=== PATIENT | female | born 1960 | race Asian ===

== ENCOUNTER 2017-11-01 16:58 | Emergency (ER) | payer MEDICAID ==
[~2017-11-01] VITALS: Ht 154.9 cm; Wt 68.2 kg
[~2017-11-01 16:58] MED LIST: CYCL1DRO EACHEYE; FAMO-128 PO; LORA0.5T PO; LORA10CA PO; NEO/5DRO3 EACHEYE; OXYB5TAB11 PO; PANT-47 PO; QUET-1 PO; SERT100T PO; TRAM50TA2 PO
[2017-11-01] MEDS ORDERED: TETanus/Pertussis (Acell)/Diphther VAC/PF (Tdap-Adult) 0.5ml syringe IM ONE (17:05)
[2017-11-01] MEDS ORDERED: BUPIVAcaine 0.5% inj/PF 30 ml vial IJ ONE (17:05)
[2017-11-01 17:06] VITALS: BP 147/101
== END 2017-11-01 17:34 | disposition home or self-care (01) ==
LOC: ER 16:59
DX: S60.351A Superficial foreign body of right thumb, initial encounter (principal); G89.29 Other chronic pain; Z90.710 Acquired absence of both cervix and uterus; Z79.899 Other long term (current) drug therapy; W22.8XXA Striking against or struck by other objects, initial encounter; Y93.89 Activity, other specified; Y92.89 Other specified places as the place of occurrence of the external cause; Y99.9 Unspecified external cause status
CPT/HCPCS: 64450; 99284; J3490; 99281

== ENCOUNTER 2018-02-01 18:59 | Emergency (ER) | payer MEDICAID ==
[~2018-02-01] VITALS: Ht 154.9 cm; Wt 71.3 kg
[2018-02-01 19:37] LABS: BASOPHILS % (AUTO) 0 % (0-1); EOSINOPHILS # (AUTO) 0.2 X10'3 (0-0.9); HEMATOCRIT 46.4 % (35.0-45.0); HEMOGLOBIN 16.2 g/dl (12.0-16.0); LYMPHOCYTES # (AUTO) 0.7 X10'3 (1.1-4.8); MEAN CORPUSCULAR HEMOGLOBIN 30.2 PG (27.0-31.0); MEAN CORPUSCULAR HGB CONC 34.9 % (33.0-36.5); MEAN CORPUSCULAR VOLUME 86.4 FL (78-98); MEAN PLATELET VOLUME 6.7 FL (7.4-10.4); MONOCYTES # (AUTO) 0.2 X10'3 (0-0.9); MONOCYTES % (AUTO) 2.7 % (2-12); NEUTROPHILS % (AUTO) 87.3 % (42-75); PLATELET COUNT 189 X10'3 (140-440); RED BLOOD COUNT 5.37 X10'6 (4.20-5.60); RED CELL DISTRIBUTION WIDTH 12.5 % (11.5-14.5); WHITE BLOOD COUNT 9.1 X10'3 (4.5-11.0)
[2018-02-01 19:52] LABS: ALANINE AMINOTRANSFERASE 49 U/L (12-78); ALBUMIN 3.8 G/DL (3.4-5.0); ALBUMIN/GLOBULIN RATIO 0.9 (1.1-1.5); ALKALINE PHOSPHATASE 95 IU/L (46-116); ANION GAP 8 (8-16); ASPARTATE AMINO TRANSFERASE 28 U/L (10-37); BILIRUBIN,TOTAL 0.6 MG/DL (0.1-1.0); BLOOD UREA NITROGEN 15 MG/DL (7-18); BUN/CREATININE RATIO 19.7 (6.6-38.0); CALCIUM 8.8 MG/DL (8.5-10.1); CHLORIDE 105 MMOL/L (99-107); CREATININE 0.76 MG/DL (0.40-0.90); GLUCOSE 120 MG/DL (70-104); LIPASE 123 U/L (73-393); POTASSIUM 3.8 MMOL/L (3.5-5.1); SODIUM 141 MMOL/L (135-145); TOTAL CARBON DIOXIDE 27.7 MMOL/L (24-32); TOTAL PROTEIN 8.1 G/DL (6.4-8.2); eGFR 79 ML/MIN
[2018-02-01 20:04] LABS: CLARITY,URINE CLEAR (Clear); COLOR,URINE YELLOW (Yellow); GLUCOSE, URINE NEGATIVE (Neg); KETONES,URINE NEGATIVE (Neg); LEUKOCYTE ESTERASE ,URINE NEGATIVE (Neg); NITRITES, URINE NEGATIVE (Neg); OCCULT BLOOD,URINE SMALL (Neg); PH,URINE 5.5 (4.8-8.0); PROTEIN,URINE NEGATIVE (Neg); UROBILINOGEN,URINE 0.2 E.U/dL (0.2-1.0)
[2018-02-01 20:09] LABS: BACTERIA,URINE NONE SEEN /HPF (Neg); RBC,URINE 0-2 /HPF (0-2); UA COLLECTION TYPE CLN CATCH MIDSTREAM; WBC,URINE NONE SEEN /HPF (0-4)
[2018-02-01 20:10] LABS: SQUAMOUS EPITHELIAL CELL,UR FEW /LPF (FEW)
[2018-02-01] MEDS ORDERED: ketorolac tromethamine 15mg/ml inj. IV ONE (20:30)
[2018-02-01] MEDS ORDERED: normal saline 1000ML IV soln IVB ONE (20:30)
[2018-02-01] MEDS ORDERED: ONDA4TAB9 SL (21:36)
[2018-02-01 21:57] VITALS: BP 124/72
== END 2018-02-01 21:58 | disposition home or self-care (01) ==
LOC: ER 18:59
DX: R10.31 Right lower quadrant pain (principal); R19.7 Diarrhea, unspecified; R11.2 Nausea with vomiting, unspecified; R31.9 Hematuria, unspecified; G89.29 Other chronic pain; Z90.710 Acquired absence of both cervix and uterus; Z56.0 Unemployment, unspecified; Z79.899 Other long term (current) drug therapy
CPT/HCPCS: 36415; 74176; 80053; 81001; 83690; 85025; 85610; 96361; 96374; 99285; J1885; J7030

== ENCOUNTER 2024-01-06 09:14 | Emergency (ER) | payer MEDICAID ==
[~2024-01-06] VITALS: Ht 154.9 cm; Wt 71.4 kg
[~2024-01-06 09:14] MED LIST changes: -OXYB5TAB11 PO; +OXYB5TAB21 PO
[2024-01-06 10:04] LABS: BILIRUBIN,URINE NEGATIVE (Neg); CLARITY,URINE CLEAR (Clear); COLOR,URINE YELLOW (Yellow); GLUCOSE, URINE NEGATIVE (Neg); KETONES,URINE NEGATIVE (Neg); LEUKOCYTE ESTERASE ,URINE NEGATIVE (Neg); NITRITES, URINE NEGATIVE (Neg); OCCULT BLOOD,URINE TRACE-INTACT (Neg); PROTEIN,URINE NEGATIVE (Neg); UROBILINOGEN,URINE 0.2 E.U/dL (0.2-1.0)
[2024-01-06 10:15] LABS: UA COLLECTION TYPE CLN CATCH MIDSTREAM
[2024-01-06 10:16] LABS: BACTERIA,URINE NONE SEEN /HPF (Neg); MUCUS STRANDS NONE SEEN /LPF (Neg); RBC,URINE NONE SEEN /HPF (0-2); SQUAMOUS EPITHELIAL CELL,UR FEW /LPF (FEW); WBC,URINE NONE SEEN /HPF (0-4)
[2024-01-06 10:24] LABS: BASOPHILS % (AUTO) 0.4 % (0-1); EOSINOPHILS # (AUTO) 0.1 X10'3 (0-0.9); EOSINOPHILS % (AUTO) 1.7 % (0-6); HEMATOCRIT 41.1 % (35.0-45.0); HEMOGLOBIN 13.8 g/dl (12.0-16.0); LYMPHOCYTES # (AUTO) 1.1 X10'3 (1.1-4.8); LYMPHOCYTES % (AUTO) 34.3 % (21-51); MEAN CORPUSCULAR HEMOGLOBIN 30.5 PG (27.0-31.0); MEAN CORPUSCULAR HGB CONC 33.5 g/dL (33.0-36.5); MEAN PLATELET VOLUME 7.1 FL (7.4-10.4); MONOCYTES # (AUTO) 0.2 X10'3 (0-0.9); MONOCYTES % (AUTO) 5.8 % (2-12); NEUTROPHILS # (AUTO) 1.9 X10'3 (1.8-7.7); NEUTROPHILS % (AUTO) 57.8 % (42-75); PLATELET COUNT 183 X10'3 (140-440); RED BLOOD COUNT 4.52 X10'6 (4.20-5.60); RED CELL DISTRIBUTION WIDTH 13.5 % (11.5-14.5); WHITE BLOOD COUNT 3.2 X10'3 (4.5-11.0)
[2024-01-06] MEDS: ondansetron/PF 4mg/2ml inj IV ONE (10:35)
[2024-01-06] MEDS: normal saline 1000ML IV soln IVB ONE (10:36)
[2024-01-06] MEDS: morphine 4 MG/ML inj SYRINge IV ONE (10:36)
[2024-01-06 10:43] LABS: ALANINE AMINOTRANSFERASE 39 U/L (12-78); ALBUMIN 3.5 G/DL (3.4-5.0); ALBUMIN/GLOBULIN RATIO 0.9 (1.1-1.5); ALKALINE PHOSPHATASE 84 IU/L (46-116); ANION GAP 9 (8-16); ASPARTATE AMINO TRANSFERASE 22 U/L (10-37); BILIRUBIN,TOTAL 0.5 MG/DL (0.1-1.0); BLOOD UREA NITROGEN 10 MG/DL (7-18); CALCIUM 8.4 MG/DL (8.5-10.1); CHLORIDE 108 MMOL/L (99-107); CREATININE 0.83 MG/DL (0.40-0.90); GLUCOSE 180 MG/DL (70-104); POTASSIUM 3.8 MMOL/L (3.5-5.1); SODIUM 145 MMOL/L (135-145); TOTAL CARBON DIOXIDE 27.8 MMOL/L (24-32); TOTAL PROTEIN 7.2 G/DL (6.4-8.2); eCRCL 54 ML/MIN; eGFR 70 ML/MIN
[2024-01-06 10:46] LABS: BILIRUBIN,DIRECT 0.1 MG/DL (0-0.3); LIPASE 28 U/L (16-77)
[2024-01-06 12:30] LABS: C-REACTIVE PROTEIN 0.13 MG/DL (0.0-0.5)
[2024-01-06 13:40] VITALS: BP 137/46; PULSE 65; RESP 14; TEMP 97.9; O2SAT 100
== END 2024-01-06 13:43 | disposition home or self-care (01) ==
LOC: ER 09:15
DX: K80.20 Calculus of gallbladder without cholecystitis without obstruction (principal); Z56.0 Unemployment, unspecified; Z90.710 Acquired absence of both cervix and uterus; Z79.899 Other long term (current) drug therapy; Z79.2 Long term (current) use of antibiotics
CPT/HCPCS: 36415; 76700; 80048; 80076; 81001; 83605; 83690; 84145; 85025; 86140; 96374; 96375; 99285; J2270; J2405; J7030

== ENCOUNTER 2024-02-12 06:10 | Day surgery (SDC) | payer MEDICAID ==
[2024-02-10 11:37] LABS: BILIRUBIN,URINE NEGATIVE (Neg); CLARITY,URINE CLEAR (Clear); COLOR,URINE STRAW (Yellow); GLUCOSE, URINE NEGATIVE (Neg); KETONES,URINE NEGATIVE (Neg); LEUKOCYTE ESTERASE ,URINE NEGATIVE (Neg); NITRITES, URINE NEGATIVE (Neg); OCCULT BLOOD,URINE NEGATIVE (Neg); PROTEIN,URINE NEGATIVE (Neg); UROBILINOGEN,URINE 0.2 E.U/dL (0.2-1.0)
[2024-02-10 11:42] LABS: UA COLLECTION TYPE CLN CATCH MIDSTREAM
[2024-02-10 11:44] LABS: BASOPHILS % (AUTO) 0.6 % (0-1); EOSINOPHILS # (AUTO) 0.1 X10'3 (0-0.9); EOSINOPHILS % (AUTO) 1.3 % (0-6); LYMPHOCYTES # (AUTO) 1.7 X10'3 (1.1-4.8); LYMPHOCYTES % (AUTO) 37.1 % (21-51); MEAN CORPUSCULAR HEMOGLOBIN 30.5 PG (27.0-31.0); MEAN CORPUSCULAR HGB CONC 33.5 g/dL (33.0-36.5); MEAN CORPUSCULAR VOLUME 91.2 FL (78-98); MONOCYTES # (AUTO) 0.3 X10'3 (0-0.9); MONOCYTES % (AUTO) 6.6 % (2-12); NEUTROPHILS # (AUTO) 2.4 X10'3 (1.8-7.7); NEUTROPHILS % (AUTO) 54.4 % (42-75); PRE OP HEMATOCRIT 42.3 % (35.0-45.0); PRE OP HEMOGLOBIN 14.2 g/dL (12.0-16.0); PRE OP PLATELET COUNT 162 X10'3 (140-440); PRE OP WHITE BLOOD COUNT 4.5 10'3 (4.8-10.8); RED BLOOD COUNT 4.63 X10'6 (4.20-5.60); RED CELL DISTRIBUTION WIDTH 13.1 % (11.5-14.5)
[2024-02-10 11:53] LABS: PRE OP PROTIME 10.8 SECONDS (9.0-12.0)
[2024-02-10 11:57] LABS: ALBUMIN 3.5 G/DL (3.4-5.0); ALBUMIN/GLOBULIN RATIO 0.8 (1.1-1.5); ALKALINE PHOSPHATASE 92 IU/L (46-116); BLOOD UREA NITROGEN 15 MG/DL (7-18); CALCIUM 8.8 MG/DL (8.5-10.1); CHLORIDE 107 MMOL/L (99-107); CREATININE 0.88 MG/DL (0.40-0.90); PRE OP ALT 37 U/L (30-65); PRE OP ANION GAP 4 (8-16); PRE OP AST 24 U/L (10-37); PRE OP BILIRUB, TOTAL 0.5 MG/DL (0.0-1.0); PRE OP GLUCOSE 105 MG/DL (70-104); PRE OP SODIUM 142 MMOL/L (135-145); TOTAL CARBON DIOXIDE 30.8 MMOL/L (24-32); TOTAL PROTEIN 7.7 G/DL (6.4-8.2); eGFR 65 ML/MIN
[~2024-02-12] VITALS: Ht 154.9 cm; Wt 71.0 kg
[2024-02-12] VITALS (14 sets, daily range): BP systolic 88–138; BP diastolic 47–89; PULSE 78–87; RESP 12–27; TEMP 98; O2SAT 90–100
[2024-02-12] MEDS: ceFOXitin 2GM-NS 100mL ADDvant 100 ML IV ONE (05:30)
[~2024-02-12 06:10] MED LIST changes: +ATOR10TA70 PO; +BECL10.6 PO; -CYCL1DRO EACHEYE; +CYCL5TAB PO; -FAMO-128 PO; +FAMO40TA7 PO; +GABA300C PO; -LORA0.5T PO; +LOSA100T58 PO; +MELO-102 PO; +METF-1203 PO; +MIRT-88 PO; -NEO/5DRO3 EACHEYE; -PANT-47 PO; +SIME80TA16 PO; -TRAM50TA2 PO
[2024-02-12] MEDS ORDERED: BUPIVAcaine/PF 2.5mg/ml (0.25%) 10ml vial ONE (06:36)
[2024-02-12] MEDS: famotidine 20mg tablet PO ONE (07:22)
[2024-02-12] MEDS: ringers solution, lacted 1,000 ML IV SCH ×2 (07:23→10:38)
[2024-02-12] MEDS: INDOCYANINE GREEN 25 MG/10 ML VIAL IV ONE (07:23)
[2024-02-12] MEDS ORDERED: midazolam 1 mg/ML 2ml injection ONE (08:08)
[2024-02-12] MEDS ORDERED: fentaNYL/PF 50MCG/1 ML 2ML syringe ONE ×2 (08:08→09:47)
[2024-02-12] MEDS ORDERED: propofol inj 20 ML IV ONE (08:09)
[2024-02-12] MEDS ORDERED: acetaminophen 1,000mg/100ml IV 100 ML IV ONE (08:09)
[2024-02-12] MEDS ORDERED: ondansetron/PF 4mg/2ml inj ONE (08:10)
[2024-02-12] MEDS ORDERED: neostigmine methylsulfate 1 MG/ML 10ml vial ONE (08:10)
[2024-02-12] MEDS ORDERED: rocuronium 10mg/ml inj IV ONE (08:10)
[2024-02-12] MEDS ORDERED: glycopyrrolate 0.2mg/ml inj ONE (08:10)
[2024-02-12] MEDS ORDERED: LIDOcaine 2% (20mg/ml) 5ml vial ONE (08:10)
[2024-02-12] MEDS ORDERED: dexamethasone sod phosphate 4mg/ml inj. ONE (08:10)
[2024-02-12] MEDS: albuterol 2.5 MG/3 ML nebule NEB STA (08:11)
[2024-02-12] MEDS ORDERED: enalaprilat dihydrate 2.5mg/2ml vial IV PRN (08:15)
[2024-02-12] MEDS ORDERED: fentaNYL/PF 50MCG/1 ML 2ML syringe IV PRN ×2 (08:15)
[2024-02-12] MEDS ORDERED: ondansetron/PF 4mg/2ml inj IV PRN (08:15)
[2024-02-12] MEDS ORDERED: morphine 2 MG/ML inj. syringe IV PRN (08:15)
[2024-02-12] MEDS ORDERED: hydrALAZINE 20mg/ml inj. IV PRN (08:15)
[2024-02-12] MEDS ORDERED: morphine 4 MG/ML inj SYRINge IV PRN (08:15)
[2024-02-12] MEDS ORDERED: sevoflurane 250ml liquid IH ONE (08:23)
[2024-02-12] MEDS ORDERED: labetalol 20mg/4ml (5mg/ml) syringe IV ONE (08:45)
[2024-02-12] MEDS ORDERED: sugammadex 200mg/2ml injection IV ONE (09:02)
[2024-02-12] MEDS ORDERED: hydrALAZINE 20mg/ml inj. IV ONE (09:24)
[2024-02-12] MEDS: BUPIVAcaine/PF 2.5mg/ml (0.25%) 10ml vial IJ ONE (09:50)
== END 2024-02-12 11:52 | disposition home or self-care (01) ==
LOC: PAS 06:10
PROVIDERS: ATTEND Surgery
DX: K80.10 Calculus of gallbladder with chronic cholecystitis without obstruction (principal); I10 Essential (primary) hypertension; E11.9 Type 2 diabetes mellitus without complications; E66.9 Obesity, unspecified; J45.909 Unspecified asthma, uncomplicated; I25.2 Old myocardial infarction; I20.9 Angina pectoris, unspecified; F41.9 Anxiety disorder, unspecified; F32.A Depression, unspecified; K21.9 Gastro-esophageal reflux disease without esophagitis; M19.90 Unspecified osteoarthritis, unspecified site; Z79.84 Long term (current) use of oral hypoglycemic drugs; Z79.899 Other long term (current) drug therapy; Z90.710 Acquired absence of both cervix and uterus; Z68.29 Body mass index [BMI] 29.0-29.9, adult
CPT/HCPCS: 36415; 47562; 71046; 80053; 81003; 82948; 85025; 85610; 85730; 86885; 86900; 86901; 93005; 94640; 94760; J0131; J0360; J0694; J1100; J2250; J2405; J2704; J2710; J3010; J3490; J7030; J7120; S2900; Z7506; Z7508; Z7512; A4215; A4618; A7000

== ENCOUNTER 2024-09-03 10:15 | Emergency (ER) | payer MEDICAID ==
[~2024-09-03] VITALS: Ht 154.9 cm; Wt 64.2 kg
[2024-09-03 11:18] LABS: BASOPHILS % (AUTO) 0.5 % (0-1); EOSINOPHILS # (AUTO) 0.1 X10'3 (0-0.9); EOSINOPHILS % (AUTO) 2.6 % (0-6); HEMATOCRIT 42.9 % (35.0-45.0); HEMOGLOBIN 14.3 g/dl (12.0-16.0); LYMPHOCYTES # (AUTO) 1.4 X10'3 (1.1-4.8); LYMPHOCYTES % (AUTO) 33.8 % (21-51); MEAN CORPUSCULAR HEMOGLOBIN 30.5 PG (27.0-31.0); MEAN CORPUSCULAR HGB CONC 33.3 g/dL (33.0-36.5); MEAN CORPUSCULAR VOLUME 91.3 FL (78-98); MEAN PLATELET VOLUME 6.8 FL (7.4-10.4); MONOCYTES # (AUTO) 0.2 X10'3 (0-0.9); MONOCYTES % (AUTO) 6.1 % (2-12); NEUTROPHILS # (AUTO) 2.3 X10'3 (1.8-7.7); PLATELET COUNT 181 X10'3 (140-440); RED CELL DISTRIBUTION WIDTH 13.5 % (11.5-14.5)
[2024-09-03 11:34] LABS: ALANINE AMINOTRANSFERASE 89 U/L (12-78); ALBUMIN 3.5 G/DL (3.4-5.0); ALBUMIN/GLOBULIN RATIO 0.9 (1.1-1.5); ALKALINE PHOSPHATASE 124 IU/L (46-116); ANION GAP 6 (8-16); ASPARTATE AMINO TRANSFERASE 18 U/L (10-37); BILIRUBIN,TOTAL 0.7 MG/DL (0.1-1.0); BLOOD UREA NITROGEN 11 MG/DL (7-18); BUN/CREATININE RATIO 13.9 (10.0-20.0); CALCIUM 8.9 MG/DL (8.5-10.1); CHLORIDE 106 MMOL/L (99-107); CREATININE 0.79 MG/DL (0.40-0.90); GLUCOSE 125 MG/DL (70-104); POTASSIUM 3.7 MMOL/L (3.5-5.1); SODIUM 143 MMOL/L (135-145); TOTAL CARBON DIOXIDE 31.2 MMOL/L (24-32); TOTAL PROTEIN 7.5 G/DL (6.4-8.2); eCRCL 56 ML/MIN; eGFR 74 ML/MIN
[2024-09-03 11:41] LABS: PRO BRAIN NATRIURETIC PEPTIDE 47 PG/ML (0-125)
[2024-09-03 12:34] LABS: D-DIMER 1.34 MG/L FEU (0-0.50)
[2024-09-03] MEDS ORDERED: iohexol 350MG/ML 100ml bottle IV ONE (13:02)
[2024-09-03 13:13] VITALS: PULSE 80; RESP 20; O2SAT 92
[2024-09-03] MEDS: ipratropium/albuterol 3ml nebule NEB ONE (13:13)
[2024-09-03 13:25] VITALS: PULSE 71; RESP 20; O2SAT 94
[2024-09-03] MEDS: dexamethasone sod phosphate 10mg/ml inj IV STA (14:47)
[2024-09-03 14:49] VITALS: PULSE 72
[2024-09-03] MEDS ORDERED: PRED20TA PO (14:57)
[2024-09-03] MEDS ORDERED: ALBU18HF2 INH (14:57)
[2024-09-03 15:11] VITALS: BP 115/60; RESP 19; TEMP 97.8; O2SAT 94
== END 2024-09-03 15:20 | disposition home or self-care (01) ==
LOC: ER 10:16
DX: J20.9 Acute bronchitis, unspecified (principal); G89.29 Other chronic pain; Z79.84 Long term (current) use of oral hypoglycemic drugs; Z79.899 Other long term (current) drug therapy; Z90.710 Acquired absence of both cervix and uterus; Z56.0 Unemployment, unspecified; W18.39XA Other fall on same level, initial encounter; Y93.89 Activity, other specified; Y92.89 Other specified places as the place of occurrence of the external cause; Y99.8 Other external cause status
CPT/HCPCS: 36415; 71045; 71275; 80053; 83880; 84484; 85025; 85379; 93005; 94640; 96374; 99285; J1100; Q9967; 94760